=== PATIENT | male | born 1970 | race Caucasian/White ===

== ENCOUNTER 2017-10-17 10:41 | Emergency (ER) | payer BC ==
[~2017-10-17] VITALS: Ht 165.1 cm; Wt 68.0 kg
[2017-10-17 11:17] VITALS: BP 140/90
[2017-10-17] MEDS ORDERED: Tetanus/Diptheria/Pertussis Vaccine 0.5ml Syr IM ONE (11:30)
[2017-10-17] MEDS ORDERED: Bacitracin Oint UD TOPIC ONE ×2 (12:03→12:15)
[2017-10-17] MEDS ORDERED: BACITRACIN15 GM TOPIC (12:09)
[2017-10-17 12:13] VITALS: BP 136/86
--- NOTE | 2017-10-18 14:02 | Emergency Room Report ---
History of Present Illness General Chief Complaint: Laceration Source: Patient Present Illness HPI 46-year-old male presents ED sense post laceration. States he actually cut his left index finger with a knife today. Tetanus unknown. States initially there was a lot of bleeding which has since subsided. Pain is burning, 5 out of 10, nonradiating. Denies any other injuries. Notes full range of motion in the finger. No other aggravating relieving factors. Denies any other associated symptoms Allergies: Coded Allergies: No Known Allergies (Unverified , 10/17/17) Patient History Past Medical History: none Past Surgical History: none Pertinent Family History: none Social History: Denies: smoking, alcohol use, drug use Immunizations: UTD Reviewed Nursing Documentation: PMH: Agreed; PSxH: Agreed Nursing Documentation-PMH Past Medical History: No Stated History Review of Systems All Other Systems: negative except mentioned in HPI Physical Exam Vital Signs Date Time Temp Pulse Resp B/P (MAP) Pulse Ox O2 Delivery O2 Flow Rate FiO2 10/17/17 11:03 98.1 99 18 140/90 96 Room Air 98.1 Sp02 EP Interpretation: reviewed, normal General Appearance: no apparent distress, alert, GCS 15, non-toxic Head: normocephalic Eyes: bilateral eye normal inspection, bilateral eye PERRL ENT: normal ENT inspection Neck: normal inspection Respiratory: normal inspection Cardiovascular #1: normal inspection Gastrointestinal: normal inspection Rectal: deferred Genitourinary: no CVA tenderness Musculoskeletal: normal inspection, normal range of motion Neurologic: alert, oriented x3, responsive, motor strength/tone normal, sensory intact, speech normal Psychiatric: judgement/insight normal, memory normal, mood/affect normal, no suicidal/homicidal ideation Skin: laceration - 2cm flap laceration at PIP joint Lymphatic: no adenopathy Procedures Laceration/Wound Repair Laceration/Wound Repair : Consent: Verbal Wound Location: upper extremity - L index finger Wound's Depth, Shape: flap Wound Length (cm): 2 Wound Explored: clean Betadine Prep?: Yes Anesthesia: 1% Lidocaine Wound Debrided: minimal Wound Repaired With: sutures Suture Size/Type: 6:0, proline Layer Closure?: No Sterile Dressing Applied?: Yes Splint Applied?: No Sling Applied?: No Patient Tolerated: Well Complications: None Medical Decision Making Diagnostic Impression: Primary Impression: Laceration ER Course Hospital Course 46-year-old M presents to ED s/p laceration L index finger using knife Clinical course Patient placed on stretcher. After initial history and physical I ordered tetanus shot. Wound irrigated. Anesthesia provided with lidocaine. Laceration repaired w/o complication. Dressing applied. Diagnosis - laceration Stable and discharged to home with prescription for bacitracin. wound Care instructions given. Followup with PMD in 10-12 days for suture removal. Return to ED if any signs of infection develop Last Vital Signs Date Time Temp Pulse Resp B/P (MAP) Pulse Ox O2 Delivery O2 Flow Rate FiO2 10/17/17 12:13 98.1 89 18 136/86 96 Room Air 98.1 Status: improved Disposition: HOME, SELF-CARE Condition: Stable Scripts Bacitracin (Bacitracin) 28.4 Gm Oint...g. 1 APPLIC TOPIC THREE TIMES A DAY, #28.4 GM Prov: Edgar Brewer MD 10/17/17 Referrals: MAUREEN CANO (PCP) Patient Instructions: Laceration Care, Adult Additional Instructions: return to ED in 10 days for suture removal Edgar Brewer MD Oct 18, 2017 14:02
== END 2017-10-17 12:14 | disposition home or self-care (01) ==
LOC: EMR 11:36
DX: S61.211A Laceration without foreign body of left index finger without damage to nail, initial encounter (principal); W26.0XXA Contact with knife, initial encounter; Y92.9 Unspecified place or not applicable; Z23 Encounter for immunization
CPT/HCPCS: 90471; 90715; 99283